=== PATIENT | female | born 1980 | race Hispanic/Latino ===

== ENCOUNTER → 2025-03-18 | Outpatient (REF) | payer BC ==
[2025-03-18 17:49] LABS: APPEARANCE, URINE HAZY (CLEAR); BACTERIA, URINE AUTO 1+ (NEGATIVE); BILIRUBIN, URINE AUTO NEGATIVE (NEGATIVE); BLOOD, URINE BLOOD 1+ (NEGATIVE); GLUCOSE, URINE (UA) AUTO NEGATIVE (NEGATIVE); KETONE, URINE AUTO NEGATIVE (NEGATIVE); LEUKOCYTE ESTERASE, URINE AUTO NEGATIVE (NEGATIVE); MUCUS, URINE SMALL (NEGATIVE); NITRITE, URINE AUTO NEGATIVE (NEGATIVE); PROTEIN, URINE AUTO NEGATIVE (NEGATIVE); RBC, URINE AUTO 0 /HPF (0-3); SPECIFIC GRAVITY URINE AUTO 1.011 (1.002-1.035); SQUAMOUS EPITHELIAL CELL UR AU 10 /HPF (0-6); UROBILINOGEN, URINE AUTO 0.2 mg/dL (0.0-2.0); WBC, URINE AUTO 1 /HPF (0-3)
[2025-03-18 18:00] LABS: BASO # 0.1 10^3/uL (0.0-0.2); BASO % 1.1 % (0.0-1.0); EOS # 0.4 10^3/uL (0.0-0.5); EOS % 7.8 % (0.0-3.0); LYMPH # 2.4 10^3/uL (1.5-5.0); LYMPH % 43.8 % (24.0-44.0); MONO # 0.4 10^3/uL (0.0-0.8); MONO % 8.0 % (2.0-8.0); NEUTROPHILS # 2.1 10^3/uL (1.5-8.5); NEUTROPHILS % 39.1 % (36.0-66.0); PLATELET COUNT, AUTOMATED 334 10^3/uL (150-450)
[2025-03-18 18:10] LABS: ALT/SGPT 29 U/L (7.0-40); AST/SGOT 21 U/L (<34); CALCIUM LEVEL 9.2 MG/DL (8.5-10.1); CARBON DIOXIDE LEVEL 23 MMOL/L (20-31); CHLORIDE LEVEL 110 MMOL/L (98-107); CHOLESTEROL LEVEL 147 MG/DL (<200); CHOLESTEROL RISK RATIO 1.81 (<5); CPK CREATINE PHOSPHOKINASE 179 U/L (34-145); CREATININE FOR GFR 0.49 MG/DL (0.55-1.30); GLOMERULAR FILTRATION RATE > 90.0 (>58); LDL CHOLESTEROL 45.3 MG/DL (<100); NON-HDL-C 65.9 MG/DL; POTASSIUM SERUM 4.3 MMOL/L (3.5-5.1); SODIUM LEVEL 143 MMOL/L (136-145); TRIGLYCERIDES LEVEL 103 MG/DL (<150)
[2025-03-18 18:11] LABS: VITAMIN B12 LEVEL 378 PG/ML (211-911)
[2025-03-18 18:29] LABS: ESTIMATED AVERAGE GLUCOSE 97.0 MG/DL (60-110)
== END ==
LOC: M SFHCLERA 08:45
PROVIDERS: ATTEND Internal Medicine
DX: Z00.00 Encounter for general adult medical examination without abnormal findings (principal); R53.1 Weakness

== ENCOUNTER → 2025-03-26 | Outpatient (CLI) | payer BC ==
[2025-03-26 18:05] LABS: ESTIMATED AVERAGE GLUCOSE 94.0 MG/DL (60-110)
[2025-03-26 18:22] LABS: CPK CREATINE PHOSPHOKINASE 147 U/L (34-145); CREATININE FOR GFR 0.67 MG/DL (0.55-1.30); GLOMERULAR FILTRATION RATE > 90.0 (>58)
[2025-03-26 18:23] LABS: RHEUMATOID FACTOR QUANT < 3.5 IU/ML (<14)
[2025-03-26 18:25] LABS: VITAMIN B12 LEVEL 463 PG/ML (211-911)
[2025-03-28 03:52] LABS: T P ELECTROPHORESIS SO 6.9 g/dL (6.1-8.1)
[2025-03-30 07:36] LABS: ALBUMIN SPEP 4.3 g/dL (3.8-4.8); ALPHA-1-GLOBULINS SO 0.3 g/dL (0.2-0.3); ALPHA-2-GLOBULINS SO 0.6 g/dL (0.5-0.9); BETA 2 GLOBULIN 0.4 g/dL (0.2-0.5); BETA-GLOBULIN SO 0.5 g/dL (0.4-0.6); GAMMA GLOBULINS SO 0.9 g/dL (0.8-1.7)
[2025-03-30 16:27] LABS: ACETYLCHOLINE RCPTOR BINDING A < 0.30 nmol/L (<=0.30)
[2025-03-31 17:06] LABS: VGCC TYPE PQ ANTIBODY < 30 pmol/L (<30)
== END ==
LOC: M LAB 15:07
PROVIDERS: ATTEND Psychiatry & Neurology Neurology
DX: E11.9 Type 2 diabetes mellitus without complications (principal); R53.1 Weakness

== ENCOUNTER → 2025-07-27 | Outpatient (CLI) | payer BC ==
[2025-07-30 01:28] LABS: CARDIOLIPIN IGA ANTIBODY 4.2 APL-U/mL (<20.0); CARDIOLIPIN IGG ANTIBODY < 2.0 GPL-U/mL (<20.0); CARDIOLIPIN IGM ANTIBODY 2.5 MPL-U/mL (<20.0)
[2025-07-30 13:33] LABS: ANTI SMITH(Sm) AB <1.0 NEG AI (<1.0 NEG); ANTI-U1 RNP AB <1.0 NEG AI (<1.0 NEG); SSA SJOGRENS A <1.0 NEG AI (<1.0 NEG); SSB SJOGRENS B <1.0 NEG AI (<1.0 NEG)
[2025-07-30 18:42] LABS: ANA TITER 2 1:320 titer (NEGATIVE)
== END ==
LOC: M LAB 14:22
PROVIDERS: ATTEND Psychiatry & Neurology Neurology
DX: R76.0 Raised antibody titer (principal); R53.1 Weakness